=== PATIENT | female | born 1975 | race Caucasian/White ===

== ENCOUNTER → 2016-09-29 | Outpatient (CLI) | payer OTHER ==
[~2016-09-29] VITALS: Ht 165.1 cm; Wt 57.2 kg
[~2016-09-29] MED LIST: BRINTELLIX5 MG PO; BUSPIRONE HCL10 MG PO; NIFEDIPINE IM; PROPRANOLOL 1010 MG PO; VALIUM5 MG PO; XANAX 0.5 MG0.5 MG PO; ZOMIG5 MG PO
--- NOTE | ~2016-09-29 | HPC ---
[facility] [place] [address] PAIN MANAGEMENT CONSULTATION Name: SABRINA LUGO Room #: REG TERENCE Zapata#: [id number] Admission: 09/29/16 Attend Phys: Yoav Butcher MD Discharge: Date of : 77 Report #: [id number] THIS REPORT FOR: //name// CC: Sukumar Butcher DATE OF SERVICE: 09/29/2016 DATE OF REGISTRATION: 09/29/2016. CHIEF COMPLAINT: Perineal pain. SUBJECTIVE: I am seeing the patient today at her own request. I saw her last in 2014. She presents today in tears and severely depressed. She was depressed last time I saw her. I spent 45 minutes today with her counseling regarding her pain, anxiety and depression. Her anxiety is severe. She has been recently seen by a psychiatrist who has placed her on anxiolytics, and she has an antidepressant, which has also been prescribed, but has not been initiated. We discussed medications at the end of the visit. The patient has a longstanding history of pain in the perineum. She apparently had a severe perineal tear and blood clot posterior to a hemorrhoidal vein. There were complications in treating her following the of her child in 2007, and she ended up with severe postprocedural pain that was ongoing for years. She received treatment locally and also at the [facility] where she received Botox injections. During that time, she suffered a severe depression. I saw her at that time. She was able to recover from her depression, actually went to the [facility] to finish some post-doctoral work, lived in [place] for 2 years. She returned to [place]. She and her then decided to have a second child, and she delivered that child by nearly 1 year ago on October 05. Following that, she had again some rectal bleeding and tearing and has had localized pain that was severe in nature. Today, she is quite catastrophic about her perineal pain. She describes anhedonia, catastrophic concerns for her rectal fissure. She feels that she is damaged, will never be better, that she will be of no use to her family and her children. She also recently had biopsy of a skin lesion which she also catastrophized planning ahead to help her transition once she developed malignant melanoma and ! At that stage, I asked if she was suicidal from her depression, and she very directly and clearly said no that she would never do that and that she was not going to disturb her family as she knew that depression intellectually is something that will pass, and she can get over, but at this point in time, she is in the deep dark hole and does not feel that there is any way out. [facility] [address] [place] [address] PAIN MANAGEMENT CONSULTATION Name: SABRINA LUGO Room #: REG TERENCE Zapata#: [id number] Admission: 09/29/16 Attend Phys: Yoav Butcher MD Discharge: Date of : 77 Report #: [id number] CURRENT MEDICATIONS: Xanax 0.5 mg p.r.n., Valium 2.5 mg one-half tablet in the morning and one half tablet during the day, Xanax 0.5 mg for panic attacks up to 2 mg at bedtime for sleep, BuSpar 5 mg b.i.d., Zomig 5 mg for migraine headache. Trintellix 5 mg prescribed yesterday, but has not been initiated, Dr. Desai prescribed it for her. Propranolol 20 mg prescribed for panic attacks, she has not taken that at this stage. Nifedipine 0.1% in base for the rectal region she uses that twice a day. ALLERGIES: PENICILLIN, DULOXETINE AND MIRTAZAPINE. PAST MEDICAL HISTORY: Mostly surrounding her deliveries, hemorrhoidal bleeding, and the multiple visits to physicians around the country for treatment of rectal fissure and perineal pain. Severe depression has occurred on more than one occasion. This is certainly an episode that she is experiencing now. 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 She is at home with her children. She is . She says her is supportive, but she feels that she is burdening him as patients with depression often do. She does not smoke nor does she drinks alcoholic beverage. REVIEW OF SYSTEMS: Completed for fatigue, weakness, headaches, loss of appetite, constipation, bleeding in the rectal area, nocturia, pain with periods, insomnia, nervousness, and depression. PHYSICAL EXAMINATION: GENERAL: She cried throughout her visit today. She describes anxiety. She describes and acknowledges her depression. VITAL SIGNS: Her blood pressure is 110/70, heart rate 73, respirations 14, BMI is 21. RECTUM AND PERINEUM: Really only a very small, noninflamed rectal fissure at roughly 9 o'clock. I did not do a rectal or vaginal exam in order to avoid stirring up additional pain, but I would say that from the exam that I did today that there is certainly not a lot of external visible pathology, and this was reported directly to the patient who has not had an exam recently. She has not looked at her own area concerned that she will see something horrible. For the most part, I felt that the visual examination was normal. IMPRESSION: 1. Severe depression with catastrophic behavior. The patient I do not believe is suicidal, but needs to be cautious. 2. Rectal pain, status post rectal fissure and hemorrhoidal hematoma following delivery 9 years ago. RECOMMENDATIONS: 1. I have asked her to go ahead and start the antidepressant ordered by Dr. Desai. We discussed the possibility that an antidepressant medication can [facility] [address] [place] [address] PAIN MANAGEMENT CONSULTATION Name: SABRINA LUGO Room #: REG [facility]#: [id number] Admission: 09/29/16 Attend Phys: Yoav Butcher MD Discharge: Date of : 77 Report #: [id number] worsen depression even promote suicidal thoughts. If she is feeling worse on the medication even in the first 2-3 days, she should discontinue it immediately, and she can contact me, Dr. Desai or her psychiatrist. 2. We discussed some cognitive behavioral techniques for stopping the automatic negative thoughts and the catastrophic considerations. 3. We discussed anhedonia and working to try and find some enmanuel in her daily life. 4. Follow up in the pain clinic in 1 week. By: [id number] Yoav Butcher MD /nt
[2016-09-29 10:14] VITALS: BP 110/70
== END | disposition home or self-care (01) ==
LOC: PAIN 06:40
DX: K62.89 Other specified diseases of anus and rectum (principal); F32.89 Other specified depressive episodes; Z88.0 Allergy status to penicillin; Z88.8 Allergy status to other drugs, medicaments and biological substances; Z98.890 Other specified postprocedural states; Z91.040 Latex allergy status

== ENCOUNTER → 2016-10-06 | Outpatient (CLI) | payer OTHER ==
[~2016-10-06] VITALS: Ht 165.1 cm; Wt 56.0 kg
[~2016-10-06] MED LIST changes: +ACETAMINOPHEN-1 EAC1 PO; +BRINTELLIX10 MG PO; +LIDOCAINE-PRILO30 GM TP; +NORTRIPTYLINE H10 M1 PO; +XANAX1 MG PO
--- NOTE | ~2016-10-06 | HPC ---
[facility] [place] [address] PAIN MANAGEMENT CONSULTATION Name: SABRINA LUGO Room #: REG Antonio Zapata#: [id number] Admission: 10/06/16 Attend Phys: Yoav Butcher MD Discharge: Date of : 77 Report #: [id number] THIS REPORT FOR: //name// CC: Sukumar Butcher DATE OF SERVICE: 10/06/2016 DATE OF REGISTRATION: 10/06/2016. SUBJECTIVE: The patient returns to pain clinic today 1 week after her last visit when she showed up in terrible depression. She has returned with a friend from her [employer]astaf[place] who has been providing her with some support in counseling. She is a bit better today, although she cried repeatedly throughout her visit today. She did seem a little bit better on her antidepressant, which was initiated by Dr. Desai. He gave her samples only of Trintellix, a drug I typically do not prescribe. She seems to have tolerated it well. This medication which modulates serotonin seems to be working and so I have kept her on it. I did not increase her dose at this time. She continues to complain of pain in her perineal area. I do believe that she is catastrophizing a bit, and I think that this is modulated a great deal by her depression. During physical exam last week, I saw very little to concern me. She feels as though there is something horrible happening with protruding uterine prolapse, but again, it does not appear that there is anything significant going on. She requests today a caudal injection. Apparently, I performed something similar to this for her in the past, which provided some reassurance that the pain could be blocked. We have sought approval, and it has been achieved through insurance so we are going to go ahead and do that today. I think it would do her a lot of good if I could provide her with some sustained relief with local caudal injection, although I do not think it will last. PHYSICAL EXAMINATION: GENERAL: Her affect remains depressed, although not quite as severely so as last week. She laughed on several occasions to some of my bad jokes. VITAL SIGNS: Her blood pressure 123/74, heart rate 65. Her BMI today is 20.6. Last week, it was 21.0, so she has lost about 3 pounds in 1 week. This goes hand in hand with her depression. We talked about the importance of eating if she can. Her blood pressure is 110/65, heart rate 82, respirations 16. GENITOURINARY: I did not reexamine her perineum from 1 week ago. IMPRESSION: [facility] [address] [place] [address] PAIN MANAGEMENT CONSULTATION Name: SABRINA LUGO Room #: REG TERENCE Monroe.#: [id number] Admission: 10/06/16 Attend Phys: Yoav Butcher MD Discharge: Date of : 77 Report #: [id number] 1. Severe suicidal depression with catastrophic ideation and behaviors. She is somewhat improved on antidepressant medication. I have encouraged her to continue on this medication and that it may take weeks for her to see benefit. 2. Rectal pain, status post rectal fissure and hemorrhoidal hematoma following delivery 9 years ago. I think that there is some catastrophizing of this injury, and I am hopeful that she will improve if we continue to address her depression. PROCEDURE: Caudal epidural injection under fluoroscopic guidance. DESCRIPTION OF PROCEDURE: She was taken to fluoroscopic suite, placed prone, skin prepped with ChloraPrep. A 25-gauge needle was gently advanced into the sacral hiatus. I injected 1 mL of Omnipaque to demonstrate a good epidurogram. Because we only wanted to anesthetize the sacral nerve roots, I injected only 7 mL of 0.25% bupivacaine mixed with 40 mg of triamcinolone. She reported that she had complete sensory block and the pain decreased to 0. TREATMENT AND PLAN: She was discharged also with a prescription for Tylenol No. 3, #30 tablets. She is to use this tablet in the middle of the night if she wakes up in severe pain. I think that it will be helpful both as a sedative and as a pain medication to supplement her other medications for depression and anxiety. She is to use these cautiously. The patient will be seen in the [facility] apparently for Botox. I did not downplay this injection, but I am not sure if it is necessary at this time. We will see how she does with the injection. By: [id number] Yoav Butcher MD /nt
[2016-10-06 13:12] VITALS: BP 110/65
== END | disposition home or self-care (01) ==
LOC: PAIN 06:46
DX: K62.89 Other specified diseases of anus and rectum (principal); F32.9 Major depressive disorder, single episode, unspecified; R10.2 Pelvic and perineal pain

== ENCOUNTER → 2016-10-24 | Outpatient (CLI) | payer OTHER ==
[~2016-10-24] VITALS: Ht 165.1 cm; Wt 54.4 kg
[2016-10-24 12:31] VITALS: BP 106/70
== END | disposition home or self-care (01) ==
LOC: PAIN 06:44
DX: G89.29 Other chronic pain (principal); F32.9 Major depressive disorder, single episode, unspecified

== ENCOUNTER → 2016-12-07 | Outpatient (CLI) | payer OTHER ==
[~2016-12-07] VITALS: Ht 165.1 cm; Wt 52.6 kg
[~2016-12-07] MED LIST changes: +FENTANYL PA12 MCG/H1 TP; +ZONEGRAN50 MG PO
--- NOTE | ~2016-12-07 | HC ---
[facility] [place] [address] CONSULTATION Name: SABRINA LUGO Room #: REG TERENCE Zapata#: [id number] Admission: 12/07/16 Attend Phys: Yoav Butcher MD Discharge: Date of : 77 Report #: [id number] THIS REPORT FOR: //name// CC: PRICILA Mendes ED, Aditya Butcher DATE OF SERVICE: 12/07/2016 HISTORY OF PRESENT ILLNESS: The patient is here today in followup. She is by herself today. She was far less emotional today than she has been in previous visits. She did not cry one time during her office visit. She says she still has pain at a 6-7 constant level. She discusses her upcoming exam under anesthesia, which will be performed by Dr. Lilly. We discussed managing her pain and I would like to avoid medications that might cause constipation, which caused further irritation. I have recommended that we try a topical analgesic cream. Medication chosen from [facility] was a neurogenic formula, which also provided musculoskeletal pain and inflammation components. This cream is 10% ketamine, 2% baclofen, 2% cyclobenzaprine, 3% diclofenac, 6% gabapentin and 2% lidocaine. We will cover multiple potential pain generator receptors with this cream and she can apply it to her perineum 3-4 times daily and I wanted her to do it continuously for 3 weeks before we determine effects. If she has sensitivity to the skin, rash or other issues, she can discontinue its use. Only a small amount needed to be applied, about the amount you would put on half of a toothbrush. I asked her today again if she had history of any sexual or physical abuse. She denied this to me and understands that this is a risk for chronic pelvic pain. I reviewed Dr. Lilly's notes and notes from the [facility], which also note that there are no significant abnormalities that they can feel or observe. We reviewed her medications. She continues on the antidepressants, which I increased at last visit, Trintellix now at 20 mg daily. I think that this is having some effect as her mood seems to be more stable. She was given baclofen at the [facility], but has not tried it. She remains on which causes nausea and anorexia and she has had some weight loss. I have suggested without response from the medication, I would discontinue it. She continues on alprazolam 1 mg at bedtime to 2 mg as needed. PHYSICAL EXAMINATION: GENERAL: The patient is pleasant today, mostly less volatile. VITAL SIGNS: Blood pressure 109/61, heart rate 75, respirations 14. [address] [address] CONSULTATION Name: SABRINA LUGO Room #: REG TERENCE Monroe.#: [id number] Admission: 12/07/16 Attend Phys: Yoav Butcher MD Discharge: Date of : 77 Report #: [id number] I did not repeat the examination of her perineum today as she will have an exam under anesthesia in less than 1 month. IMPRESSION: 1. Rectal pain, status post rectal fissure and hemorrhoidal hematoma following delivery 9 years ago. 2. Severe depression with catastrophic ideation. She is slightly better today on increased dose of Trintellix. PLAN: Trial of topical cream and follow up in 1 month. CONSULTATION TIME: 25 minutes. <ELECTRONICALLY SIGNED> By: Yoav Butcher MD 12/08/16 1351 [id number] Yoav Butcher MD /nt
[2016-12-07 13:25] VITALS: BP 109/61
== END ==
LOC: PAIN 07:23
DX: K62.89 Other specified diseases of anus and rectum (principal)

== ENCOUNTER → 2017-01-05 | Outpatient (CLI) | payer OTHER ==
[~2017-01-05] VITALS: Ht 165.1 cm; Wt 59.0 kg
[~2017-01-05] MED LIST changes: +LYRICA 50 MG50 MG PO; +ONDANSETRON HCL4 M2 PO
--- NOTE | ~2017-01-05 | HPC ---
[facility] [place] [address] PAIN MANAGEMENT CONSULTATION Name: SABRINA LUGO Room #: REG Antonio Zapata#: [id number] Admission: 01/05/17 Attend Phys: Yoav Butcher MD Discharge: Date of : 77 Report #: [id number] THIS REPORT FOR: //name// CC: PRICILA LILLY DO [place] ED, Aditya Butcher DATE OF SERVICE: 01/05/2017 Followup visit for rectal pain. HISTORY OF PRESENT ILLNESS: The patient returns to pain clinic today and brings with her report of her exam under anesthesia performed recently by Dr. Pricila Lilly. I have read through this report. I am not surprised to find that the examination was negative. The examination was performed very gently with a Raines anoscope and also a digital exam performed gently with index finger. There was no evidence of stenosis. The scope examined the area above the dentate line. There were no perianal abscesses or ____. The intersphincteric groove was also identified and there were no areas of abscesses. Anal canal was pink. There was some small scar tissue on the left side from her De La Fuente procedure. There was some scarring in the anteroposterior position, also likely due to chronic fissuring; however, there were no active fissures. Granulation tissue in the anterior portion was probed and had no depth. This was felt to be healed. There were no external openings. There was no evidence of fistula or abscess. At the conclusion of the procedure, for patient comfort, they introduced topically 10 mL of local anesthesia. I reviewed this with her. She reported that following the procedure, she had tremendous bruising and was upset that they had "injected" lidocaine into her anal sphincter. That is not what the report says. I told her that they may have injected some local anesthetic through that scope, but he describes very clearly this medication was applied topically. It would be an unusual for her to have significant bruising based upon the exam. It was long enough ago that I did not feel that I should examine her today for it, also she has in the interim been to [facility] where she was examined there. They have offered her another round of Botox. We reviewed her medications. She continues on Trintellix and seems less depressed at current dosing. She is not as historical as I have seen her in the past. She is on no opioid medications at the time. She does have fentanyl 12 mcg patch, which she is to use as an emergency backup. She has Zomig, which she has taken for migraine. She had 5-6 last month. She is on BuSpar 7.5 mg, taken only at bedtime and diazepam 5 mg taken one-half to one tablet at bedtime for spasm as well as anxiety and to aid with sleep. She has Zofran available for nausea. She has taken it once in the last [address] [address] PAIN MANAGEMENT CONSULTATION Name: SABRINA LUGO Room #: REG TERENCE Zapata#: [id number] Admission: 01/05/17 Attend Phys: Yoav Butcher MD Discharge: Date of : 77 Report #: [id number] PHYSICAL EXAMINATION: GENERAL: Her affect remains depressed. She continues to be searching for a fix for her underlying issue. VITAL SIGNS: Her blood pressure is 113/70, heart rate 91, respirations 14, BMI is 21.6. I deferred exam today. IMPRESSION: 1. Chronic rectal pain. There does not appear to be an immediate obvious anatomical answer for her pain. 2. 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 She seems improved on Trintellix. RECOMMENDATIONS: I would suggest continuing to manage symptoms and avoid any aggressive surgical or other potentially invasive treatments. She can make her own decision on Botox with the [facility] physicians. I have suggested that we initiate a trial of Lyrica as we had reviewed some neuropathic pain medications during her visit today. She was on a short-term trial of gabapentin, but has never been on Lyrica, 50 mg taken at bedtime with gradual increase in dose up to 150 mg will be suggested with samples and a prescription was provided. I would be glad to see her back in the clinic in a couple of months, but I would like her to try the Lyrica for at least 60 days. By: [id number] Yoav Butcher MD /nt
[2017-01-05 12:38] VITALS: BP 113/70
== END | disposition home or self-care (01) ==
LOC: PAIN 07:07
DX: K62.89 Other specified diseases of anus and rectum (principal); G89.29 Other chronic pain; F32.89 Other specified depressive episodes; Z88.0 Allergy status to penicillin; Z91.040 Latex allergy status; Z88.1 Allergy status to other antibiotic agents